=== PATIENT | female | born 1955 | race Caucasian/White ===

== ENCOUNTER 2016-08-12 21:11 | Emergency (ER) | payer OTHER ==
[~2016-08-12] VITALS: Ht 160 cm; Wt 59.0 kg
[~2016-08-12 21:11] MED LIST: BENA10TA48 PO; GLIP5TAB13 PO; METF500T4 PO; SIMV20TA6 PO
[2016-08-12 21:14] VITALS: Ht 160 cm; Wt 59.0 kg
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
--- NOTE | 2016-08-13 01:11 | RADRPT ---
PROCEDURE: XR Wrist. CLINICAL INDICATION: Pain. TECHNIQUE: Three views of the right wrist. COMPARISON: None available. FINDINGS: No fracture or dislocation is identified. The joint spaces are preserved. There is no significant soft tissue swelling. IMPRESSION: 1. No fracture or dislocation of the right wrist. RPTAT: HTAR .Michael Castaneda MD, Date Time Electronically viewed and signed by .Michael Castaneda MD, on 08/13/2016 01:10 .R/
--- NOTE | 2016-08-13 01:12 | RADRPT ---
PROCEDURE: XR Hand. CLINICAL INDICATION: Pain. TECHNIQUE: Three views of the right hand. COMPARISON: None available. FINDINGS: No fracture or dislocation is identified. The joint spaces are preserved. There is no significant soft tissue swelling. IMPRESSION: 1. No fracture or dislocation of the right hand. RPTAT: HTAR .Michael Castaneda MD, MD Date Time Electronically viewed and signed by .Michael Castaneda MD, on 08/13/2016 01:11 .R/
[2016-08-13] MEDS ORDERED: IBUP-1542 PO (01:29)
[2016-08-13] MEDS ORDERED: traMADol 50 MG TAB PO ONE (01:30)
== END 2016-08-13 01:44 | disposition home or self-care (01) ==
LOC: E/R 21:11
CPT/HCPCS: 73110; 73130; Z7610